=== PATIENT | male | born 1955 | race Caucasian/White ===

== ENCOUNTER 2021-02-01 19:42 | Inpatient (IN) | payer MEDICARE, OTHER ==
[~2021-02-01] VITALS: Ht 188 cm; Wt 71.7 kg
--- NOTE | 2021-02-01 19:56 | NUR ---
Patient is medically cleared by Dr. Santiago. Pt. admitted to [facility], under care of Dr. Aguilar/Thelma Belongs List completed. MRSA swab done.
[2021-02-01 21:56] VITALS: BP 153/96
[2021-02-01] MEDS ORDERED: LORAZEPAM 1 MG TABLET PO PRN (22:45)
[2021-02-01] MEDS ORDERED: MAGNESIUM HYDROXIDE 30 ML LIQUID UDC PO PRN (22:45)
[2021-02-01] MEDS ORDERED: ACETAMINOPHEN 325 MG TABLET PO PRN (22:45)
[2021-02-01] MEDS ORDERED: MAG HYDROX/AL HYDROX/SIMETH 30 ML LIQUID UDC PO PRN (22:45)
[2021-02-01] MEDS: TEMAZEPAM 7.5 MG CAPSULE PO PRN (22:59)
--- NOTE | 2021-02-01 23:29 | NUR ---
ADMIT NOTE: Patient is a 66 yr old male evaluated and placed on a 5150 for Danger to Self. According to the hold following a 911 call from his daughter stating that the patient was threatening to commit suicide. Patient also sent his ex-girlfriend a picture of a gun stating that he is going to kill himself, however when [employer] arrived the gun was a BB Gun. Upon arrival patient was alert, oriented, to time, place, and situation. Cooperative with admission interview, denied suicidal ideation or intent and stated he was only seeking attention from his ex-girlfriend. Vital signs within normal limits. Contraband placed in unit safe, belongings logged and placed in unit locker. Patient rights handbook provided, Skin intact, old scar posterior lower back. oriented to room. Psychiatrist and physician notified. Plan of care initiated, monitor Q15 mins times twenty-four hours. Requires follow up with medication, will endorse to a.m. nurse. Patient stated he was on Plavix not sure about dose or frequency.
--- NOTE | 2021-02-02 08:00 | NUR ---
Recd patient asleep with no respiratory [id number] awakened for Breakfast. Patient denied any SI Or self harm, visible on unit with min peer inter actiom ststes he shouldnt have said what he said he did not mean it, Continue to monitor for SI and encourage ventilatiom of feelings
[2021-02-02 08:01] VITALS: BP 124/81
[2021-02-02 08:14] LABS: BILIRUBIN,TOTAL 0.4 mg/dL (0.2-1.0); POTASSIUM 4.3 mmol/L (3.5-5.1); TOTAL PROTEIN, SERUM 6.8 g/dL (6.4-8.2)
[2021-02-02] MEDS ORDERED: CICL6.1H2 IH (10:58)
[2021-02-02] MEDS ORDERED: DOCU-141 PO (10:58)
[2021-02-02] MEDS ORDERED: PANT40TA2 PO (10:58)
[2021-02-02] MEDS ORDERED: CYAN-51 PO (10:58)
[2021-02-02] MEDS ORDERED: HYDR-3980 PO (10:58)
[2021-02-02] MEDS ORDERED: LEVE500T9 PO (10:58)
[2021-02-02] MEDS ORDERED: ROSU40TA PO (10:58)
[2021-02-02] MEDS ORDERED: CLOP75TA15 PO (10:58)
[2021-02-02] MEDS ORDERED: TRAZ-257 PO ×2 (11:18)
--- NOTE | 2021-02-02 11:34 | NUR ---
CHRISTIE Initial Discharge Plan Patient is currently living at home ([address] [place] [address]) alone. Patient states that he would like to return to home upon discharge. CHRISTIE will continue to work with patient, family, and MD to ensure a safe and proper discharge plan.
[2021-02-02] MEDS: levETIRAcetam 500 MG TABLET PO SCH ×2 (13:12→21:22)
[2021-02-02] MEDS: CLOPIDOGREL 75 MG TABLET PO SCH (13:12)
--- NOTE | 2021-02-02 15:30 | NUR ---
Firearms Report: Collect On Delivery Clerk completed and submitted a [employer] firearms report for 5150 danger to self certifications. A copy of report has been placed in patient chart.
[2021-02-02 16:00] VITALS: BP 140/87
[2021-02-02] MEDS: DOCUSATE SODIUM 100 MG CAPSULE PO SCH (17:12)
[2021-02-02] MEDS: HYDROCODONE/APAP 10-325 MG TABLET PO PRN ×2 (17:14→21:19)
--- NOTE | 2021-02-02 18:27 | NUR ---
patient felt better in rfa after Norc for pain @ 17 20 . Up to day room after dinner denies SI
[2021-02-02 20:03] VITALS: BP 148/82
[2021-02-02] MEDS: SERTRALINE HCL 50 MG TABLET PO SCH (21:22)
[2021-02-03] MEDS ORDERED: ROSU40TA23 PO (00:15)
[2021-02-03] MEDS ORDERED: CLOP75TA15 PO (00:15)
--- NOTE | 2021-02-03 06:56 | NUR ---
NOTES: Patient complained of chest pain. Dr. Salgado notified, troponin ordered stat and reported, no further orders.
[2021-02-03 08:00] VITALS: BP 146/80
[2021-02-03] MEDS: DOCUSATE SODIUM 100 MG CAPSULE PO SCH ×2 (08:59→17:24)
[2021-02-03] MEDS: CLOPIDOGREL 75 MG TABLET PO SCH (08:59)
[2021-02-03] MEDS: levETIRAcetam 500 MG TABLET PO SCH ×2 (08:59→17:24)
[2021-02-03] MEDS: CYANOCOBALAMIN 1,000 MCG TABLET PO SCH (08:59)
[2021-02-03] MEDS ORDERED: [UNRECOGNIZED DRUG - OTHER] PO SCH (09:00)
[2021-02-03] MEDS ORDERED: CICLESONIDE PO SCH (09:00)
[2021-02-03] MEDS: SERTRALINE HCL 50 MG TABLET PO SCH (09:00)
--- NOTE | 2021-02-03 10:03 | NUR ---
Deburring Technician support and vice division Nadir from [facility] [phone] came to talk to patient about rights for confiscating firearms and other deadly weapons since he was put on hold. Document signed by patient and placed in his chart.
[2021-02-03] MEDS: PANTOPRAZOLE SODIUM 40 MG TABLET.DR PO SCH (13:18)
[2021-02-03 16:09] VITALS: BP 123/77
--- NOTE | 2021-02-03 16:25 | NUR ---
Pt. A/O X 3 to person, place, environment. Pt. affect is isolative, calm, cooperative. Ambulates independently. Compliant with medications. Ambulates without assistance. Fall and safety precautions implemented.
--- NOTE | 2021-02-03 16:50 | NUR ---
Patient daughter Aline Frausto came to the unit with shmuel Rebolledo around 13:00 for patient to sign Power of family law attorney for health care. Document was placed in his chart.
--- NOTE | 2021-02-03 20:30 | NUR ---
RECEIVED PATIENT IN HIS ROOM IN BED. HE IS NOTED AWAKE, A/O X 3 ABLE TO VERBALIZED FEELINGS AND ABLE TO AMBULATE WITH STEADY GAIT. HE IS NOTED ISOLATIVE AND WITHDRAWN. HOWEVER, PATIENT DENIED SI OR ANY PLANS TO HARM SELF. DENIAL IS CONVINCING. PATIENT STATED, "I DON'T WANT TO HARM MYSELF, I DON'T EVEN HAVE A REAL GUN, I JUST WANTED TO GET ATTENTION FROM MY GIRLFRIEND. IT WAS VERY STUPID THING A DID". PO FLUIDS AND SNACKS WERE GIVEN. V/S STABLE. HE IS REASSURED FOR HIS SAFETY. SAFETY AND FALL PRECAUTION IN PLACE. WILL CONTINUE TO MONITOR.
[2021-02-03] MEDS ORDERED: ATORVASTATIN 10 MG TABLET PO SCH (21:00)
[2021-02-03] MEDS: TEMAZEPAM 7.5 MG CAPSULE PO PRN (22:32)
[2021-02-04 07:30] VITALS: BP_SYST 133; BP_SYST 152; BP_DIAS 60; BP_DIAS 97
[2021-02-04] MEDS: levETIRAcetam 500 MG TABLET PO SCH (09:18)
[2021-02-04] MEDS: PANTOPRAZOLE SODIUM 40 MG TABLET.DR PO SCH (09:18)
[2021-02-04] MEDS: CLOPIDOGREL 75 MG TABLET PO SCH (09:18)
[2021-02-04] MEDS: DOCUSATE SODIUM 100 MG CAPSULE PO SCH (09:18)
[2021-02-04] MEDS: CYANOCOBALAMIN 1,000 MCG TABLET PO SCH (09:18)
[2021-02-04] MEDS: SERTRALINE HCL 50 MG TABLET PO SCH (09:26)
--- NOTE | 2021-02-04 10:20 | NUR ---
Social Work Discharge Plan Patient will return to his prior living arrangement with sister at [address] [place] [address]. Sister, Lian Joseph ([phone]) accepted his returning home and patient will go home via bus later today.Patient has no outpatient follow up and will be [facility] to [facility],[address] [place] [address], [place] [address] ([phone]). This securities underwriter called [facility] and was advised that patient can call for an appointment. Patient was referred to [facility], [address] [place] [address], [facility] [id number]. Patient is agreeable to discharge. He will be given a tapcard to go home.
--- NOTE | 2021-02-04 15:26 | NUR ---
DISCHARGE NOTE: Patient was discharged to his home, located at [address] [place] [address]. Patient was provided with TAP card to be transported by bus back home and was provided with a bus route and directions. Patient's personal valuables and belongings inventoried with patient present and returned to patient. Patient provided with education about discharge instructions, prescriptions, and how to make appointments for follow up care for mental health needs. Patient able to verbalize understanding. Patient denies suicidal and homicidal ideation.
== END 2021-02-04 13:15 | disposition home or self-care (01) | DRG 881 ==
LOC: ER 19:46 → GPS 21:42
PROVIDERS: ADMIT Psychiatry & Neurology Psychiatry; ATTEND Internal Medicine
DX: F32.A Depression, unspecified (principal); R45.851 Suicidal ideations; Z98.84 Bariatric surgery status; E78.5 Hyperlipidemia, unspecified; I10 Essential (primary) hypertension; I25.10 Atherosclerotic heart disease of native coronary artery without angina pectoris; Z86.73 Personal history of transient ischemic attack (TIA), and cerebral infarction without residual deficits; Z88.0 Allergy status to penicillin; Z88.8 Allergy status to other drugs, medicaments and biological substances; Z91.048 Other nonmedicinal substance allergy status
CPT/HCPCS: 36415; 70030-TC; 71045; A4663